=== PATIENT | male | born 1975 | race Two or more races ===

== ENCOUNTER 2021-03-27 05:32 | Inpatient (IN) | payer BC ==
[~2021-03-27] VITALS: Ht 152.4 cm; Wt 74.8 kg
[2021-03-27] MEDS ORDERED: ZESTRIL40 M1 (05:43)
[2021-03-27] MEDS ORDERED: COMFORT PAC-CYC10 MG (05:44)
[2021-03-27] MEDS ORDERED: LIPITOR80 MG (05:45)
[2021-03-27] MEDS ORDERED: TRAZODONE HCL150 MG (05:45)
[2021-03-27] MEDS ORDERED: DULOXETINE HCL40 MG (05:45)
[2021-03-27] MEDS ORDERED: NAPROXEN500 MG (05:45)
[2021-03-27] MEDS ORDERED: OMEPRAZOLE20 MG (13:51)
[2021-03-27] MEDS ORDERED: CYCLOBENZAPRINE10 MG (13:51)
[2021-03-27] MEDS ORDERED: ARIPIPRAZOLE10 MG (13:51)
[2021-03-28] MEDS ORDERED: ULTRAM50 MG PO (10:38)
== END 2021-03-28 15:40 | disposition home or self-care (01) | DRG 343 ==
LOC: ER 05:32 → SEC-K 11:32 → O/R 14:46 → SURH 18:18
PROVIDERS: ADMIT Surgery; ATTEND Surgery
PROC: 0DTJ4ZZ Resection of Appendix, Percutaneous Endoscopic Approach (ICD-10-PCS; principal; 2021-03-27 14:00)
DX: K35.890 Other acute appendicitis without perforation or gangrene (principal); Z20.822 Contact with and (suspected) exposure to COVID-19